=== PATIENT | male | born 1945 | race Caucasian/White ===

== ENCOUNTER 2021-05-20 15:08 | Observation (INO) ==
[2021-05-20 16:54] LABS: Basophils # 0.1 K/mcL (0.0-0.2); Basophils % 0.5 %; Eosinophils # 0.2 K/mcL (0.0-0.6); Hematocrit 37.3 % (37.5-50.1); Hemoglobin 12.1 g/dL (12.9-16.9); Immature Granulocytes % 0.2 % (0-4); Lymphocytes # 2.7 K/mcL (0.6-4.6); Lymphocytes % 28.7 %; Mean Corpuscular HGB Conc 32.4 g/dL (31.6-35.5); Mean Corpuscular Hemoglobin 29.5 pg (28.0-33.3); Mean Platelet Volume 11.1 fL (9.4-12.4); Monocytes # 0.6 K/mcL (0.0-1.3); Monocytes % 6.8 %; Neutrophils # 5.8 K/mcL (1.6-8.9); Platelet Count 184 K/mcL (140-400); Red Cell Distribution Width 13.8 % (11.5-14.5); Segmented Neutrophils % 61.8 %; White Blood Count 9.3 K/mcL (4.3-11.1)
[2021-05-20 17:02] LABS: Influenza A PCR Negative (Negative); Influenza B PCR Negative (Negative); Resp. Syncytial Virus PCR Negative (Negative)
[2021-05-20 17:04] LABS: SARS-CoV-2 by PCR (In House) Negative (Negative)
[2021-05-20 17:10] LABS: INR 1.1; Prothrombin Time 12.5 Seconds (9.4-12.1)
[2021-05-20 17:13] LABS: Activated Partial Thrombo Time 32.6 Seconds (26.0-36.0)
[2021-05-20] MEDS ORDERED: Naloxone 0.4 MG/ML INJ IVP PRN (17:24)
[2021-05-20] MEDS ORDERED: Ondansetron 4 MG/2 ML VIAL IVP PRN (17:24)
[2021-05-20] MEDS ORDERED: Acetaminophen 325 MG TABLET PO PRN (17:24)
[2021-05-20 17:27] LABS: BUN/Creatinine Ratio 20 (6-26); Blood Urea Nitrogen 25 mg/dL (8-23); Calcium 8.8 mg/dL (8.6-10.3); Carbon Dioxide 24 mEq/L (23-29); Chloride 109 mEq/L (98-107); Glucose 94 mg/dL (70-105); Osmolality,Calculated 286 (280-300); Potassium 4.2 mEq/L (3.5-5.1); Sodium 136 mEq/L (136-145); Troponin I 0.03 ng/mL (< 0.04); eGFR For African Americans > 60 (> 60); eGFR For Non-African Americans 55 (> 60)
[2021-05-20] MEDS ORDERED: Perflutren Lipid Microsphere 1.3 ML in 0.9 % Sodium Chloride 8.7 ML IVP PRN (17:46)
[2021-05-20] MEDS: *HR* Heparin 5,000 UNIT/ML VIAL SQ SCH (20:35)
[2021-05-21 01:57] LABS: Basophils % 0.3 %; Eosinophils # 0.2 K/mcL (0.0-0.6); Eosinophils % 1.7 %; Hematocrit 36.4 % (37.5-50.1); Immature Granulocytes % 0.3 % (0-4); Lymphocytes # 2.9 K/mcL (0.6-4.6); Lymphocytes % 28.6 %; Mean Corpuscular Hemoglobin 29.8 pg (28.0-33.3); Mean Corpuscular Volume 90.3 fL (83.0-100.0); Mean Platelet Volume 10.9 fL (9.4-12.4); Monocytes # 0.8 K/mcL (0.0-1.3); Monocytes % 8.3 %; Neutrophils # 6.1 K/mcL (1.6-8.9); Platelet Count 175 K/mcL (140-400); Red Blood Count 4.03 M/mcL (4.19-5.50); Red Cell Distribution Width 13.7 % (11.5-14.5); Segmented Neutrophils % 60.8 %
[2021-05-21 02:16] LABS: Chol/HDL Ratio 2.7 (0-4.9)
[2021-05-21 02:24] LABS: BUN/Creatinine Ratio 18 (6-26); Blood Urea Nitrogen 22 mg/dL (8-23); Calcium 8.4 mg/dL (8.6-10.3); Carbon Dioxide 22 mEq/L (23-29); Chloride 110 mEq/L (98-107); Glucose 88 mg/dL (70-105); Magnesium 2.1 mg/dL (1.6-2.6); Osmolality,Calculated 285 (280-300); Potassium 4.1 mEq/L (3.5-5.1); Sodium 136 mEq/L (136-145); Troponin I 0.04 ng/mL (< 0.04); eGFR For African Americans > 60 (> 60); eGFR For Non-African Americans 60 (> 60)
[2021-05-21 04:21] LABS: Estimated Average Glucose 114 mg/dl; Hemoglobin A1C 5.6 %
[2021-05-21] MEDS: *HR* Heparin 5,000 UNIT/ML VIAL SQ SCH ×2 (05:02→17:44)
[2021-05-21] MEDS: lisinopriL 10 MG TABLET PO SCH (09:18)
[2021-05-21] MEDS: Spironolactone 12.5 MG TABLET PO SCH (09:18)
[2021-05-21] MEDS: Furosemide 40 MG TABLET PO SCH (09:18)
[2021-05-21] MEDS: Aspirin 81 MG TAB.CHEW PO SCH (09:53)
[2021-05-21] MEDS: Baclofen 10 MG TABLET PO SCH ×3 (09:53→20:04)
[2021-05-21] MEDS: carvediloL 6.25 MG TABLET PO SCH ×2 (09:53→17:44)
[2021-05-21] MEDS ORDERED: Regadenoson 0.4 MG/5 ML SYRINGE IVP ONE (10:23)
[2021-05-21] MEDS: *HR* OxyCODONE/APAP 10/325 TABLET PO PRN (16:03)
[2021-05-22] MEDS: *HR* Heparin 5,000 UNIT/ML VIAL SQ SCH (05:16)
[2021-05-22 06:51] LABS: BUN/Creatinine Ratio 15 (6-26); Blood Urea Nitrogen 18 mg/dL (8-23); Calcium 8.8 mg/dL (8.6-10.3); Carbon Dioxide 25 mEq/L (23-29); Chloride 108 mEq/L (98-107); Glucose 91 mg/dL (70-105); Osmolality,Calculated 289 (280-300); Potassium 3.9 mEq/L (3.5-5.1); Sodium 139 mEq/L (136-145); eGFR For African Americans > 60 (> 60); eGFR For Non-African Americans 58 (> 60)
[2021-05-22] MEDS: Spironolactone 12.5 MG TABLET PO SCH (09:40)
[2021-05-22] MEDS: Aspirin 81 MG TAB.CHEW PO SCH (09:40)
[2021-05-22] MEDS: carvediloL 6.25 MG TABLET PO SCH (09:40)
[2021-05-22] MEDS: Furosemide 40 MG TABLET PO SCH (09:41)
[2021-05-22] MEDS: lisinopriL 10 MG TABLET PO SCH (09:41)
[2021-05-22] MEDS: Baclofen 10 MG TABLET PO SCH ×2 (09:41→14:36)
[2021-05-22] MEDS ORDERED: *HR* FentaNYL (PF) 100 MCG/2 ML VIAL ONE (12:07)
[2021-05-22] MEDS ORDERED: *HR* Midazolam HCl 2 MG/2 ML VIAL ONE (12:07)
[2021-05-22] MEDS ORDERED: ISOVUE-370 200 ML INFUS..BTL ONE (12:08)
[2021-05-22] MEDS ORDERED: *HR* Heparin 10,000 UNIT/10 ML VIAL ONE (12:08)
[2021-05-22] MEDS ORDERED: Nitroglycerin 1,000 MCG/5 ML VIAL IV ONE (12:08)
[2021-05-22] MEDS ORDERED: Heparin 1,000 UNITS/500 mL 0 ML ONE ×2 (12:08→12:16)
[2021-05-22] MEDS ORDERED: Acetaminophen 325 MG TABLET PO PRN (12:45)
[2021-05-22] MEDS ORDERED: Isosorbide MONOnitrate (24 HR) 30 MG TAB.ER.24H PO SCH (13:15)
[2021-05-22] MEDS: *HR* OxyCODONE/APAP 10/325 TABLET PO PRN (14:36)
[2021-05-22 15:49] VITALS: BP 100/65; PULSE 77; TEMP 97.7; O2SAT 95
== END 2021-05-22 17:41 | disposition home or self-care (01) ==
LOC: EMEROOARM 15:08 → 2ANU 15:08
PROVIDERS: ADMIT Student in an Organized Health Care Education/Training Program; ATTEND Student in an Organized Health Care Education/Training Program